=== PATIENT | female | born 1980 | race Caucasian/White ===

== ENCOUNTER 2019-11-21 09:38 | Inpatient (IN) | payer MEDICAID, OTHER ==
[~2019-11-21] VITALS: Ht 165.1 cm; Wt 92.1 kg
[2019-11-21] MEDS ORDERED: LACTATED RINGERS 1,000 ML IV SCH (10:46)
[2019-11-21] MEDS ORDERED: BUTORPHANOL TARTRATE 2 MG/ML VIAL IV PRN (11:00)
[2019-11-21] MEDS ORDERED: LIDOCAINE HCL 1% 20ML VIAL (Pyxis) INJ INFIL SCH (11:00)
[2019-11-21] MEDS ORDERED: METHYLERGONOVINE MALEATE 0.2 MG/ML IM PRN (11:00)
[2019-11-21] MEDS ORDERED: NALOXONE HCL 0.4 MG/ML 1ML VIAL IM PRN (11:00)
[2019-11-21 11:25] LABS: BASOPHILS % 0.4 % (0.0-2.0); EOSINOPHILS % 0.2 % (0.0-5.0); HEMATOCRIT. 34.5 % (36.0-48.0); LYMPHOCYTES % 18.7 % (20.0-50.0); MEAN CORPUSCULAR HEMOGLOBIN 30.2 pg (28.0-32.0); MEAN PLATELET VOLUME 10.8 fl (7.4-10.4); MONOCYTES % 5.4 % (2.0-8.0); NEUTROPHILS % 75.3 % (40.0-76.0); PLATELET 180 x1000/uL (130-400); RED BLOOD CELL COUNT 3.97 mill/uL (4.2-5.4); RED CELL DISTRIBUTION WIDTH 13.1 % (11.6-14.6)
[2019-11-21 11:25] LABS: CLARITY URINE CLOUDY (CLEAR); COLOR URINE YELLOW (YELLOW); KETONES URINE TRACE (NEGATIVE); LEUKOCYTE ESTERASE URINE 1+ (NEGATIVE); NITRITE URINE NEGATIVE (NEGATIVE); OCCULT BLOOD URINE NEGATIVE (NEGATIVE); PH URINE 6.5 (4.5-8.0); PROTEIN URINE NEGATIVE (NEGATIVE); SPECIFIC GRAVITY URINE 1.022 (1.005-1.030)
[2019-11-21] MEDS: LACTATED RINGERS 1,000 ML IV SCH ×2 (11:27→18:42)
[2019-11-21 11:36] LABS: INR 0.9; PARTIAL THROMBOPLASTIN TIME 28.2 sec (23.4-31.0)
[2019-11-21 11:44] LABS: *BARBITURATES SCREEN URINE NEGATIVE (NEGATIVE); *BENZODIAZEPINES SCREEN URINE NEGATIVE (NEGATIVE); *COCAINE SCREEN URINE NEGATIVE (NEGATIVE); METHADONE URINE SCREEN NEGATIVE (NEGATIVE); OPIATES URINE SCREEN NEGATIVE (NEGATIVE)
[2019-11-21 11:45] LABS: *AMPHETAMINES SCREEN URINE NEGATIVE (NEGATIVE); CANNABINOID URINE SCREEN NEGATIVE (NEGATIVE); PHENCYCLIDINE URINE SCREEN NEGATIVE (NEGATIVE)
[2019-11-21] MEDS ORDERED: DINOPROSTONE 10MG VAGINAL INSERT VG NR (12:00)
[2019-11-21 14:54] LABS: HEPATITIS B SURFACE ANTIGEN NEGATIVE
[2019-11-21] MEDS ORDERED: ROPIVACAINE HCL/PF EPIDURAL 200 ML EPI SCH (23:15)
[2019-11-22] MEDS: LACTATED RINGERS 1,000 ML IV SCH (00:01)
[2019-11-22] MEDS ORDERED: ONDANSETRON HCL 4MG/2ML INJ IV SCH ×2 (01:45→02:00)
[2019-11-22] MEDS: DEXT 5%/LR + PITOCIN 20UNITS/L 1,000 ML IV SCH ×2 (02:27→05:20)
[2019-11-22] MEDS ORDERED: DEXT 5%/LR + PITOCIN 20UNITS/L 1,000 ML IV SCH (04:09)
[2019-11-22] MEDS ORDERED: ACETAMINOPHEN WITH CODEINE 300/30MG TABLET PO PRN (04:15)
[2019-11-22] MEDS ORDERED: IBUPROFEN 400MG TABLET PO PRN (04:15)
[2019-11-22] MEDS ORDERED: BENZOCAINE/LANOLIN/ALOE VERA SPRAY TOP PRN (04:15)
[2019-11-22] MEDS ORDERED: HEMORRHOIDAL SUPP PR PRN (04:15)
[2019-11-22] MEDS ORDERED: METHYLERGONOVINE MALEATE 0.2 MG/ML IM PRN (04:15)
[2019-11-22] MEDS ORDERED: GLYCERIN/WITCH HAZEL LEAF MEDICATED PAD TOP PRN (04:15)
[2019-11-22] MEDS ORDERED: LANOLIN OINT 7GM TUBE TOP PRN (04:15)
[2019-11-22] MEDS ORDERED: BISACODYL 10MG SUPP PR PRN (04:15)
[2019-11-22] MEDS ORDERED: IBUPROFEN 800MG TABLET PO PRN (04:15)
[2019-11-22] MEDS ORDERED: DIPHENHYDRAMINE 25MG CAPSULE PO PRN (04:15)
[2019-11-22 06:00] VITALS: BP 117/67
[2019-11-22 07:31] VITALS: BP 115/79
[2019-11-22] MEDS: SIMETHICONE 80MG TABLET CHEW PO SCH ×4 (08:38→21:31)
[2019-11-22] MEDS: PRENATAL VIT/FE FUMARATE/FA TABLET PO SCH (08:38)
[2019-11-22 16:07] VITALS: BP 121/82
[2019-11-22 19:30] VITALS: BP 138/61
[2019-11-22] MEDS ORDERED: DOCUSATE SODIUM 100MG CAPSULE PO SCH (21:00)
[2019-11-22] MEDS ORDERED: MEASLES,MUMPS&RUBELLA VACCINE 1 VIAL SUBCUT ONE (22:00)
[2019-11-23 04:00] VITALS: BP 120/87
[2019-11-23] MEDS ORDERED: FERROUS SULFATE 325MG TABLET PO SCH (07:30)
[2019-11-23 07:50] VITALS: BP 110/83
[2019-11-23] MEDS: SIMETHICONE 80MG TABLET CHEW PO SCH (08:00)
[2019-11-23] MEDS: PRENATAL VIT/FE FUMARATE/FA TABLET PO SCH (08:38)
[2019-11-23 08:41] LABS: BASOPHILS % 0.4 % (0.0-2.0); EOSINOPHILS % 0.5 % (0.0-5.0); HEMATOCRIT. 36.1 % (36.0-48.0); HEMOGLOBIN. 12.2 g/dL (12.0-16.0); LYMPHOCYTES % 20.7 % (20.0-50.0); MEAN CORPUSCULAR HEMOGLOBIN 29.9 pg (28.0-32.0); MEAN CORPUSCULAR VOLUME 88.6 fL (81.0-99.0); MONOCYTES % 4.5 % (2.0-8.0); NEUTROPHILS % 73.9 % (40.0-76.0); PLATELET 195 x1000/uL (130-400); RED BLOOD CELL COUNT 4.07 mill/uL (4.2-5.4); RED CELL DISTRIBUTION WIDTH 13.2 % (11.6-14.6)
== END 2019-11-23 12:20 | disposition home or self-care (01) | DRG 560 ==
LOC: 8 EST LDRP 09:38 → 8EST 11-22 04:37
PROVIDERS: ADMIT Obstetrics & Gynecology; ATTEND Obstetrics & Gynecology
PROC: 10E0XZZ Delivery of Products of Conception, External Approach (ICD-10-PCS; principal; 2019-11-22)
PROC: 3E0R3BZ Introduction of Anesthetic Agent into Spinal Canal, Percutaneous Approach (ICD-10-PCS; 2019-11-22)
PROC: 00HU33Z Insertion of Infusion Device into Spinal Canal, Percutaneous Approach (ICD-10-PCS; 2019-11-22)
DX: O24.429 Gestational diabetes mellitus in childbirth, unspecified control (principal); O69.81X0 Labor and delivery complicated by cord around neck, without compression, not applicable or unspecified; Z3A.39 39 weeks gestation of pregnancy; Z37.0 Single live birth
CPT/HCPCS: 36415; 80305; 81003; 82947; 85025; 86592; 86703; 86762; 86850; 86900; 87340; 90707; J0595; J2405; J2590; J2795; J7120